=== PATIENT | female | born 1955 | race Hispanic/Latino ===

== ENCOUNTER 2017-08-26 13:37 | Outpatient (CLI) | payer OTHER ==
--- NOTE | 2017-08-26 15:07 | Mammography Report ---
Screening augmented mammogram: Routine views are obtained over the implants as well as displacement views bilaterally. The implants are submuscular and intact bilaterally. The overall fibroglandular pattern of both breasts is that of intermediate density in a symmetric distribution. There is a partially circumscribed area of increased density just above and medial to the left nipple. No other focal findings noted. When compared to her prior exam in February 2016 the asymmetry described on the right side at that time is unchanged and unremarkable. The asymmetry on the left however is not identified on her prior exam. CAD used. Impression: Left asymmetry. Recommendation: Spot compression imaging of the left breast and ultrasound as needed. BI-RADS CATEGORY: 0 = Needs additional imaging evaluation ACR BI-RADS MAMMOGRAPHIC CODES: 0 = Needs additional imaging evaluation; 1 = Negative; 2 = Benign; 3 = Probably benign; 4 = Suspicious; 5 = Malignant; 6 = Known biopsy-proven malignancy COMMENT: 1. Dense breast tissue, i.e., adenosis, fibrocystic changes, etc., may obscure an underlying neoplasm. 2. Approximately 10% of cancers are not detected with mammography. 3. A negative mammography report should not delay biopsy if a clinically suspicious mass is present.
== END 2017-08-26 13:38 | disposition home or self-care (01) ==
LOC: MAMMO 13:37
PROVIDERS: ATTEND Family Medicine
DX: Z12.31 Encounter for screening mammogram for malignant neoplasm of breast (principal); N64.89 Other specified disorders of breast
CPT/HCPCS: 77067

== ENCOUNTER 2017-09-05 08:22 | Outpatient (CLI) | payer OTHER ==
--- NOTE | 2017-09-05 16:32 | Ultrasound Report ---
LEFT DIGITAL DIAGNOSTIC MAMMOGRAM and LEFT BREAST ULTRASOUND: 09/05/17 08:22:00 CLINICAL: Recalled for asymmetry. COMPARISON:08/26/17 screening FINDINGS: ML and MLO and CC spot compression views were performed.Near complete effacement of asymmetry on the CC view. The other views are negative. Ultrasound of the left breast demonstrated no mass, cyst or shadowing to correlate with the mammographic density. A subareolar benign cyst at 12 o'clock measures 3 x 2 x 3 mm. IMPRESSION: A subtle benign asymmetry and a benign subareolar cyst at 12 o'clock. BI-RADS CATEGORY: 2 - - Benign RECOMMENDATION: Routine mammographic screening in one year. ACR BI-RADS MAMMOGRAPHIC CODES: 0 = Needs additional imaging evaluation; 1 = Negative; 2 = Benign; 3 = Probably benign; 4 = Suspicious; 5 = Malignant; 6 = Known biopsy-proven malignancy COMMENT: 1. Dense breast tissue, i.e., adenosis, fibrocystic changes, etc., may obscure an underlying neoplasm. 2. Approximately 10% of cancers are not detected with mammography. 3. A negative mammography report should not delay biopsy if a clinically suspicious mass is present. COMMENT: Patient follow-up letters are generated via our [employer] application.
== END 2017-09-05 08:23 | disposition home or self-care (01) ==
LOC: US 08:22
DX: N60.02 Solitary cyst of left breast (principal); N64.89 Other specified disorders of breast